=== PATIENT | female | born 1965 | race Caucasian/White ===

== ENCOUNTER → 2018-06-18 | Outpatient (CLI) | payer OTHER ==
[~2018-06-18] MED LIST: BIOTIN PO; MULT-257 PO; PROGESTERONE PO
[2018-06-18 09:11] LABS: BASOPHILS # (AUTO) 0.02 x10^3/uL (0-0.1); BASOPHILS % (AUTO) 0 % (0-1); EOSINOPHILS # (AUTO) 0.07 x10^3/uL (0-0.4); EOSINOPHILS % (AUTO) 2 % (1-7); LYMPHOCYTES # (AUTO) 1.54 x10^3/uL (1-3.4); LYMPHOCYTES % (AUTO) 34 % (22-44); MD NO; MEAN CORPUSCULAR HGB CONC 33.8 g/dL (32.4-35.8); MEAN CORPUSCULAR VOLUME 94.6 fL (80-100); MEAN PLATELET VOLUME 7.2 fL (7.4-10.4); MONOCYTES # (AUTO) 0.38 x10^3/uL (0.2-0.8); MONOCYTES % (AUTO) 8 % (2-9); NEUTROPHILS # (AUTO) 2.47 x10^3/uL (1.8-6.8); NEUTROPHILS % (AUTO) 55 % (42-75); PLATELET COUNT 324 x10^3/uL (130-400); RED BLOOD COUNT 4.03 x10^6/uL (3.82-5.3); RED CELL DISTRIBUTION WIDTH 13.6 % (9.6-15.2)
[2018-06-18 09:23] LABS: ALANINE AMINOTRANSFERASE 24 U/L (12-78); ALBUMIN 3.8 g/dL (3.4-5.0); ANION GAP 10 mmol/L (5-15); CALCIUM 8.5 mg/dL (8.5-10.1); CHLORIDE 106 mmol/L (98-107)
[2018-06-18 09:24] LABS: LDL/HDL RATIO 0.8 (0.5-3.0)
[2018-06-18 09:26] LABS: ALKALINE PHOSPHATASE 43 U/L (45-117); BILIRUBIN,TOTAL 0.6 mg/dL (0.2-1.0); CREATININE 0.73 mg/dL (0.55-1.02); TOTAL PROTEIN 7.1 g/dL (6.4-8.2)
[2018-06-18 10:09] LABS: INTERNATIONAL NORMALIZED RATIO 1.07 (0.93-1.1); PROTHROMBIN TIME 11.1 Seconds (9.6-11.5)
== END | disposition home or self-care (01) ==
LOC: STAR 08:12
PROVIDERS: ATTEND Surgery
DX: Z01.818 Encounter for other preprocedural examination (principal)
CPT/HCPCS: 36415; 80053; 80061; 85025; 85610; 93005

== ENCOUNTER 2018-06-24 07:01 | Day surgery (SDC) | payer OTHER ==
[2018-06-18 08:48] VITALS: BP 116/82
[~2018-06-24] VITALS: Ht 172.7 cm; Wt 62.3 kg
[~2018-06-24 07:01] MED LIST changes: +BUPIVACAINE/PF-EPI 0.5% 1:200K ONE
[2018-06-24] MEDS ORDERED: LACTATED RINGERS 1,000 ML IV SCH (07:56)
[2018-06-24] MEDS ORDERED: MIDAZOLAM 1 MG/ML, 2ML ONE (08:11)
[2018-06-24] MEDS ORDERED: FENTANYL PF 250 MCG/5ML ONE (08:11)
[2018-06-24] MEDS ORDERED: ACETAMINOPHEN 500 MG TABLET PO STA (08:13)
[2018-06-24] MEDS ORDERED: SCOPOLAMINE PATCH, 1.5MG PATCH.TD72 TD STA (08:13)
[2018-06-24] MEDS ORDERED: GABAPENTIN 300 MG CAPSULE PO STA (08:13)
[2018-06-24] MEDS ORDERED: ONDANSETRON ODT 8 MG PO STA (08:13)
[2018-06-24] MEDS ORDERED: CEFAZOLIN 1,000 MG ONE ×2 (08:17)
[2018-06-24] MEDS ORDERED: PROPOFOL 10 MG/ML, 20ML ONE (08:17)
[2018-06-24] MEDS ORDERED: WATER-INJECTION,STERILE 10 ML IV ONE (08:17)
[2018-06-24] MEDS ORDERED: LIDOCAINE-MPF 2% ,5ML ONE (08:17)
[2018-06-24] MEDS ORDERED: ROCURONIUM 10MG/ML,5ML ONE (08:17)
[2018-06-24 08:18] LABS: HCG UR SG 1.039 (1.003-1.030)
[2018-06-24] MEDS ORDERED: DEXAMETHASONE 4 MG/ML, 1ML ONE ×2 (09:08)
[2018-06-24] MEDS ORDERED: ONDANSETRON 2MG/ML, 2ML ONE ×2 (09:21)
[2018-06-24] MEDS ORDERED: HALOPERIDOL 5 MG/ML IV PRN (09:30)
[2018-06-24] MEDS ORDERED: OXYcodone 5 MG/5 ML ORAL.SOL UDC PO PRN (09:30)
[2018-06-24] MEDS ORDERED: HYDROmorphone 1 MG/ML, 1ML IV PRN (09:30)
[2018-06-24] MEDS ORDERED: hydrALAzine 20 MG/ML, 1ML IV PRN (09:30)
[2018-06-24] MEDS ORDERED: MEPERIDINE/PF 25MG/0.5ML IVPush PRN (09:30)
[2018-06-24] MEDS ORDERED: FENTANYL PF 100 MCG/2ML IV PRN (09:30)
[2018-06-24] MEDS ORDERED: LABETALOL 5MG/ML, 20ML IV PRN (09:30)
[2018-06-24] MEDS ORDERED: LORazepam 2 MG/ML, 1ML IVPush PRN (09:30)
[2018-06-24] MEDS ORDERED: DIPHENHYDRAMINE 50 MG/ML, 1ML IVPush PRN (09:30)
[2018-06-24] MEDS ORDERED: KETOROLAC 30 MG/1 ML IV PRN (10:00)
[2018-06-24] MEDS ORDERED: KETOROLAC 30 MG/1 ML ONE (10:00)
[2018-06-24] MEDS ORDERED: OXYcodone 5 MG/5 ML ORAL.SOL UDC ONE (10:00)
== END 2018-06-24 11:40 | disposition home or self-care (01) ==
LOC: OUT 07:01
PROVIDERS: ATTEND Surgery
DX: C43.59 Malignant melanoma of other part of trunk (principal); Z98.890 Other specified postprocedural states; Z72.89 Other problems related to lifestyle
CPT/HCPCS: 21932; 81025; 88307; J0690; J1100; J1885; J2250; J2405; J2704; J3010; J3490; J7120; Q0162; 88342; G0461

== ENCOUNTER → 2020-09-17 | Outpatient (CLI) | payer OTHER ==
[~2020-09-17] MED LIST changes: -BUPIVACAINE/PF-EPI 0.5% 1:200K ONE; +ESTR1PAT25 TD; +THYROID MEDICINE PO
[2020-09-17 13:41] LABS: BASOPHILS % (AUTO) 1 % (0-1); EOSINOPHILS % (AUTO) 1 % (1-7); LYMPHOCYTES % (AUTO) 33 % (22-44); MEAN CORPUSCULAR HEMOGLOBIN 31.5 pg (27.0-34.8); MEAN CORPUSCULAR HGB CONC 33.7 g/dL (32.4-35.8); MEAN PLATELET VOLUME 7.1 fL (7.4-10.4); MICROSCOPIC NOT IND; MONOCYTES % (AUTO) 7 % (2-9); NEUTROPHILS % (AUTO) 58 % (42-75); PLATELET COUNT 352 x10^3/uL (130-400); RED BLOOD COUNT 3.79 x10^6/uL (3.82-5.3); RED CELL DISTRIBUTION WIDTH 13.1 % (9.6-15.2)
[2020-09-17 13:47] LABS: MD NO
[2020-09-17 13:52] LABS: ANION GAP 8 mmol/L (5-15); CALCIUM 8.7 mg/dL (8.5-10.1); CHLORIDE 107 mmol/L (98-107); CREATININE 1.47 mg/dL (0.55-1.02)
== END | disposition home or self-care (01) ==
LOC: STAR 12:35
PROVIDERS: ATTEND Obstetrics & Gynecology Gynecology
DX: Z01.812 Encounter for preprocedural laboratory examination (principal); N95.0 Postmenopausal bleeding; N84.0 Polyp of corpus uteri; R93.89 Abnormal findings on diagnostic imaging of other specified body structures; D21.9 Benign neoplasm of connective and other soft tissue, unspecified; Z20.828 Contact with and (suspected) exposure to other viral communicable diseases
CPT/HCPCS: 80048; 81003; 85025; 87635

== ENCOUNTER 2020-09-21 07:04 | Day surgery (SDC) | payer OTHER ==
[~2020-09-21] VITALS: Ht 171.4 cm; Wt 61.0 kg
[2020-09-21 07:24] VITALS: BP 136/86
[2020-09-21] MEDS ORDERED: LACTATED RINGERS 1,000 ML IV SCH (07:30)
[2020-09-21] MEDS ORDERED: CHLORHEXIDINE 15 ML UDC MM ONE (07:30)
[2020-09-21] MEDS ORDERED: MIDAZOLAM 1 MG/ML, 2ML ONE (08:29)
[2020-09-21] MEDS ORDERED: FENTANYL PF 250 MCG/5ML ONE (08:29)
[2020-09-21] MEDS ORDERED: FENTANYL PF 100 MCG/2ML IV PRN (08:30)
[2020-09-21] MEDS ORDERED: ONDANSETRON 2MG/ML, 2ML IVPush PRN (08:30)
[2020-09-21] MEDS ORDERED: ACETAMINOPHEN 325 MG TABLET PO PRN (08:30)
[2020-09-21] MEDS ORDERED: HYDROmorphone 1 MG/ML, 1ML INJ IVPush PRN (08:30)
[2020-09-21] MEDS ORDERED: LABETALOL 5MG/ML, 20ML IV PRN (08:30)
[2020-09-21] MEDS ORDERED: OXYcodone 5 MG/5 ML ORAL.SOL UDC PO PRN (08:30)
[2020-09-21] MEDS ORDERED: PROMETHAZINE 25 MG/ML, 1ML IVPush PRN (08:30)
[2020-09-21] MEDS ORDERED: hydrALAzine 20 MG/ML, 1ML IV PRN (08:30)
[2020-09-21] MEDS ORDERED: EPINEPHRINE 1 MG/ML, 1ML ONE (08:31)
[2020-09-21] MEDS ORDERED: BUPIVACAINE/PF 0.25% ONE (08:31)
[2020-09-21] MEDS ORDERED: SILVER NITRATE STICK TP ONE (08:31)
[2020-09-21] MEDS ORDERED: PROPOFOL 10 MG/ML, 20ML ONE (09:01)
[2020-09-21] MEDS ORDERED: DEXAMETHASONE 4 MG/ML, 5ML ONE (09:01)
[2020-09-21] MEDS ORDERED: ONDANSETRON 2MG/ML, 2ML ONE (09:11)
[2020-09-21] MEDS ORDERED: ACETAMINOPHEN 650 MG/20.3 ML UDC ONE (09:48)
== END 2020-09-21 11:00 | disposition home or self-care (01) ==
LOC: OUT 07:04
PROVIDERS: ATTEND Obstetrics & Gynecology Gynecology
DX: D25.9 Leiomyoma of uterus, unspecified (principal); N84.0 Polyp of corpus uteri; E03.9 Hypothyroidism, unspecified; F12.90 Cannabis use, unspecified, uncomplicated; Z98.890 Other specified postprocedural states; Z79.899 Other long term (current) drug therapy; Z72.89 Other problems related to lifestyle
CPT/HCPCS: 58561; 88305; J1100; J2250; J2405; J2704; J3010; J7120; J0171